=== PATIENT | male | born 1960 | race African-American/Black ===

== ENCOUNTER 2019-01-12 08:36 | Emergency (ER) | payer OTHER ==
[2019-01-12] MEDS ORDERED: MORPHINE SULFATE 4 MG/1ML SYG ONE (09:00)
[2019-01-12] MEDS ORDERED: ONDANSETRON HCL 4 MG/2 ML VIAL ONE (09:00)
[2019-01-12] MEDS ORDERED: SODIUM CHLORIDE 0.9% 1000ML 1,000 ML IV ONE (09:01)
[2019-01-12 09:23] LABS: BASOPHILS % (AUTO) 0.5 % (0.0-5.0); EOSINOPHILS % (AUTO) 1.3 % (0.0-8.0); HEMATOCRIT 51.9 % (42-54); LYMPHOCYTES % (AUTO) 45.4 % (21.0-51.0); MEAN CORPUSCULAR HEMOGLOBIN 33.6 pg (27.0-33.0); MEAN CORPUSCULAR HGB CONC 34.6 g/dL (32.0-36.0); MEAN CORPUSCULAR VOLUME 97.2 fL (79-99); MONOCYTES % (AUTO) 14.7 % (3.0-13.0); NEUTROPHILS % (AUTO) 38.1 % (40.0-77.0); NUCLEATED RED BLOOD CELLS 0.2 % (0.0-0.19); PLATELET COUNT (AUTO) 257 K/uL (130-400); RED BLOOD CELL COUNT(AUTO) 5.34 MIL/uL (4.50-6.20); WHITE BLOOD COUNT (AUTO) 5.3 K/uL (4.8-10.8)
[2019-01-12 09:25] LABS: APPEARANCE,URINE Clear (CLEAR); BILIRUBIN,URINE Small (NEGATIVE); COLOR,URINE Orange (YELLOW); GLUCOSE, URINE (UA) Negative (NEGATIVE); KETONES,URINE 15 mg/dL (NEGATIVE); LEUKOCYTE ESTERASE ,URINE Trace (NEGATIVE); NITRATE,URINE Negative (NEGATIVE); OCCULT BLOOD,URINE Negative (NEGATIVE); PH,URINE 5.5 (5.0-8.0); PROTEIN,URINE Trace mg/dL (NEGATIVE)
[2019-01-12 09:33] LABS: BACTERIA,URINE Rare /HPF (None Seen); RBC,URINE 0-1 /HPF (0-1); SQUAMOUS EPITHELIAL CELL,UR Rare /HPF (0-2); WBC,URINE 0-1 /HPF (0-1)
[2019-01-12 09:34] LABS: CREATININE 0.9 mg/dL (0.5-1.5); POTASSIUM 5.7 mmol/L (3.5-5.1)
[2019-01-12 09:38] LABS: ALBUMIN 4.1 g/dL (3.5-5.0); BILIRUBIN,TOTAL 0.9 mg/dL (0.2-1.0); TOTAL PROTEIN, SERUM 8.8 g/dL (6.0-8.3)
[2019-01-12 10:46] LABS: CREATININE 0.9 mg/dL (0.5-1.5)
== END 2019-01-12 11:45 | disposition home or self-care (01) ==
LOC: EDH 08:36
DX: M54.6 Pain in thoracic spine (principal); I10 Essential (primary) hypertension; Z72.0 Tobacco use
CPT/HCPCS: 36415; 74176; 80048; 80053; 81001; 85025; 96374; 96375; 99285; J2270; J2405; J7030

== ENCOUNTER 2021-10-01 22:12 | Emergency (ER) | payer OTHER ==
[2021-10-01 23:45] VITALS: BP 164/80
== END 2021-10-02 00:16 | disposition home or self-care (01) ==
LOC: EDH 22:12
DX: S39.012A Strain of muscle, fascia and tendon of lower back, initial encounter (principal); S16.1XXA Strain of muscle, fascia and tendon at neck level, initial encounter; S50.01XA Contusion of right elbow, initial encounter; S09.90XA Unspecified injury of head, initial encounter; M47.816 Spondylosis without myelopathy or radiculopathy, lumbar region; M19.021 Primary osteoarthritis, right elbow; V49.49XA Driver injured in collision with other motor vehicles in traffic accident, initial encounter; Y93.89 Activity, other specified; Y92.413 State road as the place of occurrence of the external cause; Y99.8 Other external cause status
CPT/HCPCS: 70450; 72100; 72125; 73080

== ENCOUNTER 2024-11-19 11:29 | Emergency (ER) | payer BC ==
[~2024-11-19] VITALS: Ht 177.8 cm; Wt 84.4 kg
--- NOTE | 2024-11-19 11:37 | ERN ---
ED Note History of Present Illness Stated Complaint: PAIN IN RIGHT SIDE AND BACK Time Seen by MD: 11:29 Dictation: PATIENT IS A 64-YEAR-OLD MALE COMING IN TODAY WITH A SUDDEN ONSET OF RIGHT LOWER QUADRANT PAIN WORSE WHEN HE WALKS OR COUGHS FOR THE LAST 3-4 DAYS. HE DENIES FEVER CHILLS NAUSEA VOMITING. NO PRIMARY CARE DOCTOR. STATES HE HAS HAD NO PRIOR ABDOMINAL SURGERIES AND STILL HAS A APPENDIX, NO HISTORY OF HERNIA. PATIENT NOTED TO HAVE REBOUND TENDERNESS TO RIGHT LOWER QUADRANT IN TRIAGE Allergies: Coded Allergies: No Known Allergies (Unverified Allergy, Unknown, 01/12/19) Past Medical History Past Medical History: No Pertinent History Surgical History: None Family History: Negative Social History: Negative RN Note Reviewed/Agreed w/PFSH: Yes Review of System Dictation CONSTITUTIONAL: NEGATIVE EXCEPT FOR HPI HEAD/FACE: NEGATIVE EXCEPT FOR HPI EENT: NEGATIVE EXCEPT FOR HPI RESPIRATORY: NEGATIVE EXCEPT FOR HPI GASTROINTESTINAL/ABDOMINAL: NEGATIVE EXCEPT FOR HPI RIGHT LOWER QUADRANT PAIN TENDERNESS GENITOURINARY: NEGATIVE EXCEPT FOR HPI MUSCULOSKELETAL: NEGATIVE EXCEPT FOR HPI INTEGUMENTARY: NEGATIVE EXCEPT FOR HPI NEUROLOGICAL/PSYCH: NEGATIVE EXCEPT FOR HPI HEMATOLOGIC/LYMPHATIC: NEGATIVE EXCEPT FOR HPI ALL SYSTEMS NEGATIVE, EXCEPT NOTED ABOVE. 13 POINT REVIEW OF SYSTEMS ASSESSED AND ALL NEGATIVE EXCEPT FOR ABOVE. Initial Vital Sign VS Vital Signs Date Time Temp Pulse Resp B/P (MAP) Pulse Ox O2 Delivery O2 Flow Rate FiO2 11/19/24 11:43 97.9 78 16 154/94 98 Room Air 0 11/19/24 12:01 21 Physical Exam Dictation VITAL SIGNS REVIEWED GENERAL APPEARANCE: ALERT, ORIENTED X 3, MODERATE ACUTE DISTRESS, WELL DEVELOPED, NOURISHED. HEAD AND FACE: NON-TRAUMATIC. EYES: PERRL, PINK CONJUNCTIVAS, EYELID NO TRAUMA, ANTERIOR CHAMBER WITH ARCUS SENILIS. EARS: PINNAS INTACT AND NO SIGNS OF TRAUMA OR ERYTHEMA EAR CANALS CLEAR AND NO DISCHARGE TM NO ERYTHEMA NOSE: NO DISCHARGE, NO BLEEDING. OROPHARYNX: MOUTH NORMAL, TONGUE PINK, PHARYNX CLEAR,NO ERYTHEMA, TONSILS NO EXUDATES, NO ABSCESSES NOTED, MUCOUS MEMBRANE MOIST NECK: SUPPLE, NON-TENDER, NO THYROMEGALY, NO MASSES, NO JVD, NO BRUITS BREAST:DEFERRED CHEST:NO TENDERNESS, NO CREPITUS, NO PARADOXICAL MOVEMENT, NO RETRACTIONS LUNGS:CLEAR, WELL-VENTILATED, SYMMETRIC, NO RALES, NO WHEEZING, NO RHONCHI, NO STRIDOR, GOOD BREATH SOUNDS BILATERALLY HEART: REGULAR RATE, REGULAR RHYTHM, NO MURMUR, NO GALLOPS VASCULAR: NO PERIPHERAL EDEMA, ABDOMEN: SOFT, POSITIVE BOWEL SOUNDS, NONDISTENDED, NO GUARDING, REBOUND TENDERNESS TO RIGHT LOWER QUADRANT WITH GUARDING. RECTAL: DEFERRED EXTREMITIES: NONTENDER, FULL RANGE OF MOTION SKIN: COLOR PINK, DRY, NO TURGOR, NO RASH, NO LACERATIONS, NO ABRASIONS, NO CONTUSIONS. LYMPHATIC: DEFERRED Results (Laboratory/Radiology) Laboratory/Radiology Laboratory Tests Test 11/19/24 11:46 11/19/24 11:58 White Blood Count 5.8 K/uL (4.8-10.8) Red Blood Count 5.15 MIL/uL (4.50-6.20) Hemoglobin 16.4 g/dL (14.0-18.0) Hematocrit 46.3 % (42-54) Mean Corpuscular Volume 89.9 fL (79-99) Mean Corpuscular Hemoglobin 31.8 pg (27.0-33.0) Mean Corpuscular Hemoglobin Concent 35.4 g/dL (32.0-36.0) Red Cell Distribution Width 14.2 % (11.0-15.5) Platelet Count 290 K/uL (130-400) Mean Platelet Volume 9.2 fL (7.5-10.5) Immature Granulocyte % (Auto) 0.2 % (0-1) Neutrophils (%) (Auto) 29.7 % (40.0-77.0) L Lymphocytes (%) (Auto) 57.8 % (21.0-51.0) H Monocytes (%) (Auto) 10.2 % (3.0-13.0) Eosinophils (%) (Auto) 1.4 % (0.0-8.0) Basophils (%) (Auto) 0.7 % (0.0-5.0) Neutrophils # (Auto) 1.7 K/uL (1.8-7.7) L Lymphocytes # (Auto) 3.3 K/uL (1.0-4.8) Monocytes # (Auto) 0.6 K/uL (0.1-1.0) Eosinophils # (Auto) 0.08 K/uL (0.00-0.70) Basophils # (Auto) 0.04 K/uL (0.00-0.20) Absolute Immature Granulocyte (auto 0.01 K/uL (0-1) Nucleated Red Blood Cells 0.0 % (0.0-0.19) Sodium Level 138 mmol/L (136-145) Potassium Level 3.9 mmol/L (3.5-5.1) Chloride Level 103 mmol/L (101-111) Carbon Dioxide Level 26 mmol/L (21-32) Blood Urea Nitrogen 19 mg/dL (7-18) H Creatinine 0.8 mg/dL (0.5-1.3) Glomerular Filtration Rate Calc 100 mL/min (>90) Random Glucose 109 mg/dL (70-105) H Total Calcium 9.4 mg/dL (8.5-10.1) Lipase 51 U/L (16-77) Urine Color YELLOW (YELLOW) Urine Appearance CLEAR (CLEAR) Urine pH 5.5 (5.0-8.0) Urine Specific [place] 1.032 (1.001-1.031) Urine Protein 10 mg/dL (NEGATIVE) H Urine Glucose (UA) NEGATIVE mg/dL (NEGATIVE) Urine Ketones NEGATIVE mg/dL (NEGATIVE) Urine Occult Blood NEGATIVE (NEGATIVE) Urine Nitrate NEGATIVE (NEGATIVE) Urine Bilirubin NEGATIVE mg/dL (NEGATIVE) Urine Urobilinogen 2.0 mg/dL (0.2-1.0) H Urine Leukocyte Esterase NEGATIVE [place]/uL Urine RBC 0-1 /HPF (0-1) Urine WBC 2-5 /HPF (0-1) H Urine Squamous Epithelial Cells RARE /HPF (0-2) Urine Bacteria None /HPF (None Seen) CT ABDOMEN/PELVIS W/CONTRAST HISTORY: Right lower abdominal pain COMPARISON: None TECHNIQUE: Multiple sequential axial images of the abdomen and pelvis were obtained from the dome of the diaphragm through symphysis pubis. Patient was not given contrast through intravenous route. Oral contrast was not given. FINDINGS: No pleural effusion is seen bilaterally. There is no evidence of parenchymal disease or pulmonary nodule of the visualized lower lungs. Degenerative changes of the thoracolumbar spine are present. The heart is not enlarged. The liver, spleen, adrenal glands and pancreas are unremarkable. There is no evidence of hydronephrosis bilaterally. No evidence of renal stone is seen. Fecal material is seen in the colon. There are normal size retroperitoneal and mesenteric lymph nodes. No ascites is seen. Appendix is not well seen limiting evaluation. Pelvic sidewalls are symmetric bilaterally. Bladder is poorly distended with apparent wall thickening. There is clinical suspicion for cystitis, urinalysis correlation may be helpful. IMPRESSION: 1. Bladder is poorly distended with apparent wall thickening. If there is clinical suspicion for cystitis, urinalysis correlation may be helpful. Labs Reviewed?: Yes ED Course ED Course Orders Procedure Category Date Status Time Cbc With Differential LAB 11/19/24 Complete 11:34 Urinalysis Profile LAB 11/19/24 Complete 11:34 Ct Abdomen/Pelvis CT 11/19/24 Resulted W/Contrast 11:34 0.9%Nacl 1000ml (Ns PHA 11/19/24 Complete 1000ml) 12:00 Ketorolac PHA 11/19/24 Complete Tromethamine 30mg/Ml 12:00 Lipase LAB 11/19/24 Complete 11:34 Basic Metabolic Panel LAB 11/19/24 Complete 11:34 Iohexol (Omnipaque) PHA 11/19/24 Complete 12:35 Current Medications Medications (Trade) Dose Ordered Sig/Jany Route PRN Reason Start Time Stop Time Status Last Admin Dose Admin Iohexol (Omnipaque) 35,000 mg STK-MED ONCE IV 11/19/24 12:35 11/19/24 12:36 DC Ketorolac Tromethamine (toRADol) 30 mg ONCE ONCE IVP 11/19/24 12:00 11/19/24 12:01 DC 11/19/24 12:08 Sodium Chloride 1,000 ml @ 0 mls/hr ONCE ONCE IV 11/19/24 12:00 11/19/24 12:01 DC 11/19/24 12:08 Vital Signs Date Time Temp Pulse Resp B/P (MAP) Pulse Ox O2 Delivery O2 Flow Rate FiO2 11/19/24 12:01 98.1 75 16 150/90 98 Room Air* 0 21 11/19/24 11:43 97.9 78 16 154/94 98 Room Air 0 1330/PATIENT IN NO PAIN AT THIS TIME. TOLD TO FOLLOW UP WITH HIS PRIMARY CARE DOCTOR AND GIVEN A LIST OF PHYSICIANS. CT IS INCONCLUSIVE OTHER THAN MILDLY THICKENING BLADDER WALL. Medical Decision Making MDM MEDICAL DECISION-MAKING BASED ON BASIC LABS FOR ABDOMINAL PLAIN TO INCLUDE CT OF THE ABDOMEN WITH CONTRAST DUE TO REBOUND TENDERNESS TO RIGHT LOWER QUADRANT. CT NEGATIVE EXCEPT FOR MILD BLADDER WALL THICKENING CONSISTENT WITH A CYSTITIS PATIENT WILL BE DISCHARGED HOME AND TOLD TO FOLLOW UP WITH HIS DOCTOR AND GIVEN A LIST DX & DISP Disposition: Discharge Departure Impression: Primary Impression: Acute abdominal pain in right lower quadrant Additional Impression: Bladder wall thickening Condition: Stable Scripts Ibuprofen (Ibuprofen 800 mg Tab) 800 Mg Tab 800 MG PO Q8H PRN for fever or pain, #30 TAB 0 Refills Prov: ASHKAN SEN NP 11/19/24 Additional Instructions: FOLLOW-UP WITH PRIMARY CARE PROVIDER IN 1 TO 2 DAYS. TAKE MEDICATIONS DIRECTED HERE IN THE EMERGENCY ROOM. OKAY TO CONTINUE HOME MEDICATIONS UNLESS OTHERWISE DISCUSSED DURING YOUR VISIT IN THE EMERGENCY ROOM TODAY. RETURN TO YOUR NEAREST EMERGENCY ROOM IF SYMPTOMS WORSEN OR IF THERE IS NO IMPROVEMENT. CALL 911 IF YOU NEED IMMEDIATE ASSISTANCE. TAKE TYLENOL OR MOTRIN [id number] NEEDED AND IF NO CONTRAINDICATIONS ARE PRESENT. INCREASE ORAL HYDRATION. A WOUND CULTURE OR URINE CULTURE WAS ORDERED HERE IN THE EMERGENCY ROOM DEPARTMENT PLEASE FOLLOW-UP WITH PRIMARY CARE PROVIDER AND ADVISE THEM TO GET REPEAT PORTS FROM OUR FACILITY. IF YOU HAD ANY STEPHANIE WRAP/SPLINTS THAT WERE APPLIED HERE, PLEASE DO NOT REMOVE THEM UNTIL YOU SEE YOUR PRIMARY CARE OR SPECIALTY. TAKE IBUPROFEN NEEDED FOR PAIN. FOLLOW UP WITH ONE OF THE DOCTORS ON THE LIST PROVIDED YOU IN THE NEXT SEVERAL DAYS. Referrals: SELF,REFERRAL (PCP) Time of Disposition: 13:30 I have reviewed the case, and I agree with, Diagnosis and Plan ASHKAN SEN NP Nov 19, 2024 11:37
[2024-11-19 11:54] LABS: BASOPHILS # (AUTO) 0.04 K/uL (0.00-0.20); BASOPHILS % (AUTO) 0.7 % (0.0-5.0); EOSINOPHILS # (AUTO) 0.08 K/uL (0.00-0.70); EOSINOPHILS % (AUTO) 1.4 % (0.0-8.0); HEMATOCRIT 46.3 % (42-54); IMMATURE GRANULOCYTE ABSOLUTE 0.01 K/uL (0-1); LYMPHOCYTES # (AUTO) 3.3 K/uL (1.0-4.8); LYMPHOCYTES % (AUTO) 57.8 % (21.0-51.0); MEAN CORPUSCULAR HEMOGLOBIN 31.8 pg (27.0-33.0); MEAN CORPUSCULAR HGB CONC 35.4 g/dL (32.0-36.0); MEAN CORPUSCULAR VOLUME 89.9 fL (79-99); MONOCYTES # (AUTO) 0.6 K/uL (0.1-1.0); MONOCYTES % (AUTO) 10.2 % (3.0-13.0); NEUTROPHILS # (AUTO) 1.7 K/uL (1.8-7.7); NEUTROPHILS % (AUTO) 29.7 % (40.0-77.0); PLATELET COUNT (AUTO) 290 K/uL (130-400); RED BLOOD CELL COUNT(AUTO) 5.15 MIL/uL (4.50-6.20); RED CELL DISTRIBUTION WIDTH 14.2 % (11.0-15.5); WHITE BLOOD COUNT (AUTO) 5.8 K/uL (4.8-10.8)
[2024-11-19 12:02] LABS: CREATININE 0.8 mg/dL (0.5-1.3); POTASSIUM 3.9 mmol/L (3.5-5.1)
[2024-11-19] MEDS: 0.9%NACL 1000ML 1,000 ML IV ONE (12:08)
[2024-11-19] MEDS: ketOROlac 30MG VIAL (30MG/ML) IVP ONE (12:08)
[2024-11-19 12:18] LABS: APPEARANCE,URINE CLEAR (CLEAR); BILIRUBIN,URINE NEGATIVE (NEGATIVE); COLOR,URINE YELLOW (YELLOW); GLUCOSE, URINE (UA) NEGATIVE (NEGATIVE); KETONES,URINE NEGATIVE (NEGATIVE); LEUKOCYTE ESTERASE ,URINE NEGATIVE Leu/uL (NEGATIVE); NITRATE,URINE NEGATIVE (NEGATIVE); OCCULT BLOOD,URINE NEGATIVE (NEGATIVE); PH,URINE 5.5 (5.0-8.0); PROTEIN,URINE 10 mg/dL (NEGATIVE)
[2024-11-19 12:22] LABS: ADD UA MICROSCOPIC YES
[2024-11-19 12:24] LABS: MUCUS,URINE FEW LPF (None Seen); RBC,URINE 0-1 /HPF (0-1); SQUAMOUS EPITHELIAL CELL,UR RARE /HPF (0-2)
[2024-11-19] MEDS ORDERED: IOHEXOL 350 MG/ML 100ML INFUS..BTL IV ONE (12:35)
--- NOTE | 2024-11-19 13:16 | HMCIMG ---
CT ABDOMEN/PELVIS W/CONTRAST HISTORY: Right lower abdominal pain COMPARISON: None TECHNIQUE: Multiple sequential axial images of the abdomen and pelvis were obtained from the dome of the diaphragm through symphysis pubis. Patient was not given contrast through intravenous route. Oral contrast was not given. FINDINGS: No pleural effusion is seen bilaterally. There is no evidence of parenchymal disease or pulmonary nodule of the visualized lower lungs. Degenerative changes of the thoracolumbar spine are present. The heart is not enlarged. The liver, spleen, adrenal glands and pancreas are unremarkable. There is no evidence of hydronephrosis bilaterally. No evidence of renal stone is seen. Fecal material is seen in the colon. There are normal size retroperitoneal and mesenteric lymph nodes. No ascites is seen. Appendix is not well seen limiting evaluation. Pelvic sidewalls are symmetric bilaterally. Bladder is poorly distended with apparent wall thickening. There is clinical suspicion for cystitis, urinalysis correlation may be helpful. IMPRESSION: 1. Bladder is poorly distended with apparent wall thickening. If there is clinical suspicion for cystitis, urinalysis correlation may be helpful. CT was performed with one or more following dose reduction techniques: automated exposure control, adjustment of the mA and kv according to patient's size, or use of a iterative reconstruction technique.
[2024-11-19] MEDS ORDERED: IBUP-2077 PO (13:31)
[2024-11-19 13:44] VITALS: BP 145/82; PULSE 72; RESP 16; TEMP 98.1; O2SAT 98
== END 2024-11-19 13:48 | disposition home or self-care (01) ==
LOC: EDH 11:29
DX: N32.89 Other specified disorders of bladder (principal); R10.31 Right lower quadrant pain
CPT/HCPCS: 99284; 74177; 96374; 80048; 83690; 85025; 81001; 36415; J1885; J7030; Q9967